=== PATIENT | female | born 1960 | race Caucasian/White ===

== ENCOUNTER 2018-01-07 16:21 | Emergency (ER) | payer BC ==
[~2018-01-07] VITALS: Ht 175.3 cm; Wt 94.8 kg
[~2018-01-07 16:21] MED LIST: AMOXICILLIN250 MG PO; ASPIR-LOW81 MG PO; CIPRO500 MG PO; CLARITIN-D 241 EACH PO; LEVAQUIN500 MG PO; METRONIDAZOLE500 MG PO; OMEPRAZOLE40 MG PO; PROMETHAZINE HC25 M1 PO
[2018-01-07] MEDS ORDERED: HYDROCODONE/APAP 10MG-325MG TAB PO ONE (16:45)
--- NOTE | 2018-01-07 19:37 | Diagnostic Imaging Report ---
KNEE LEFT THREE VIEWS, LOWER LEG LEFT, ANKLE 3+ VIEWS LEFT, FOOT LEFT COMPLETE Comparison: None Clinical history: Pain from the foot to the knee, concern for fracture Findings: Left knee, lower leg, ankle and foot: Moderate soft tissue swelling is noted about the leg and ankle. Small knee joint effusion. Tricompartmental degenerative osteoarthrosis is noted about the knee. There is slight offset of the second tarsometatarsal joint on oblique view. No acute fractures seen. Impression: 1. Small knee joint effusion with tricompartmental degenerative osteoarthrosis. 2. Offset of the second tarsometatarsal joint only seen on oblique view. Consider dedicated weight bearing views and correlate with concern for Lisfranc type injury. Signed by: Dr Darline Castellanos MD on 01/07/2018 7:33 PM
== END 2018-01-07 20:10 | disposition home or self-care (01) ==
LOC: ER 16:21
DX: S93.492A Sprain of other ligament of left ankle, initial encounter (principal); S80.02XA Contusion of left knee, initial encounter; W01.0XXA Fall on same level from slipping, tripping and stumbling without subsequent striking against object, initial encounter; Y93.01 Activity, walking, marching and hiking; Y92.488 Other paved roadways as the place of occurrence of the external cause; K21.9 Gastro-esophageal reflux disease without esophagitis; Z87.19 Personal history of other diseases of the digestive system
CPT/HCPCS: 99283

== ENCOUNTER 2019-07-17 07:23 | Emergency (ER) | payer BC, OTHER ==
[~2019-07-17] VITALS: Ht 172.7 cm; Wt 93.0 kg
--- OUTSIDE RECORDS SUMMARY | 2019-07-17 07:25 | XMS REPORT | Continuity of Care Document ---
Author Author [facility] Ch[facility] Address Unknown Phone Unavailable Care Team Providers Care Area Attendant Name Role Phone [facility] Unavailable Unavailable Problems Problem Status Onset Date Classification Date Reported Comments Source Chronic frontal sinusitis Active Problem 04/19/2019 [id number] Microcytic anemia Active Problem 04/19/2019.0.1.813086.4.391.11.541636 Encounter for general adult medical examination without abnormal findings Active Diagnosis 04/05/2019 2.0.1.065531.4.391.11.679737 Need for hepatitis C screening test Active Diagnosis 04/05/2019.0.1.555849.4.391.11.718418 Encounter for screening for other disorder Active Diagnosis 04/05/2019 2.0.1.469531.4.391.11.448017 Screening for breast cancer Active Diagnosis 04/05/2019..1.454735.4.391.11.431993 Medications Medication Details Route Status Patient Instructions Ordering Provider Order Date Source Omeprazole 1 capsule Orally Active 20 MG Orally Once a day [facility] 2.0.1.882526.4.391.11.795866 Allergies, Adverse Reactions, Alerts Substance Category Reaction Severity Reaction type Status Date Reported Comments Source Augmentin Adverse Reaction abnormal sleep Adverse Reaction Active 04/04/2019.0.1.002444.4.391.11.330352 Immunizations No Data Provided for This Section Results No Data Provided for This Section Pathology Reports No Data Provided for This Section Diagnostic Reports No Data Provided for This Section Consultation Notes No Data Provided for This Section Discharge Summaries No Data Provided for This Section History and Physicals No Data Provided for This Section Vital Signs Vital Sign Value Date Comments Source Weight 216 04/04/2019 2.16.840.1.446641.4.391.11.568939 Height 68.5 04/04/2019 2.16.840.1.969045.4.391.11.935547 Temperature Oral (F) 98.4 F 04/04/2019 2.16.840.1.928865.4.391.11.958122 Heart Rate 60 04/04/2019 2.16.840.1.188872.4.391.11.787525 Diastolic (mm Hg) 82 04/04/2019 2.16.840.1.628944.4.391.11.246535 Systolic (mm Hg) 129 04/04/2019 2.16.840.1.943439.4.391.11.219988 Encounters No Data Provided for This Section Procedures No Data Provided for This Section Assessment and Plan No Data Provided for This Section Plan of Care No Data Provided for This Section Social History No Data Provided for This Section Family History No Data Provided for This Section Advance Directives No Data Provided for This Section Functional Status No Data Provided for This Section
--- OUTSIDE RECORDS SUMMARY | 2019-07-17 07:25 | XMS REPORT ---
Author [facility] Address Unknown Phone Unavailable Care Team Providers Care Scalp Treatment Operator Name Role Phone PRASANNAENRIQUE Mague ZAZUETABONG Unavailable Unavailable Problems This patient has no known problems. Allergies, Adverse Reactions, Alerts This patient has no known allergies or adverse reactions. Medications This patient has no known medications. Results Test Description Test Time Test Comments Text Results Atomic Results Result Comments ANKLE 3+ VIEWS LEFT [place] [id number] Patient Name: JUANI VALLE MR #: [id number] : 1960 Age/Sex: 57/F Req #: [id number] Adm Physician: Ordered by: IRVING [employer] TECHNICIAN Report #: [id number] Location: ER Room/Bed: Procedure: [id number] DX/ANKLE 3+ VIEWS LEFT Exam Date: 01/07/18 Exam Time: 1705 REPORT STATUS: Signed KNEE LEFT THREE VIEWS, LOWER LEG LEFT, ANKLE 3+ VIEWS LEFT, FOOT LEFT COMPLETE Comparison: None Clinical history: Pain from the foot to the knee, concern for fracture Findings: Left knee, lower leg, ankle and foot: Moderate soft tissue swelling is noted about the leg and ankle. Small knee joint effusion. Tricompartmental degenerative osteoarthrosis is noted about the knee. There is slight offset of the second tarsometatarsal joint on oblique view. No acute fractures seen. Impression: 1. Small knee joint effusion with tricompartmental degenerative osteoarthrosis. 2. Offset of the second tarsometatarsal joint only seen on oblique view. Consider dedicated weight bearing views and correlate with concern for Lisfranc type injury. Signed by: Dr Collin Castellanos MD on 01/07/2018 7:33 PM Dictated By: COLLIN CASTELLANOS MD 32 Transcribed By: TAYLOR on 01/07/181932 COPY TO: IR[employer]ING [employer] TECHNICIAN FOOT LEFT COMPLETE [place] [address] Patient Name: JUANI VALLE MR #: [id number] : 1960 Age/Sex: 57/F Req #: [id number] Adm Physician: Ordered by: IRVING [employer] TECHNICIAN Report #: [id number] Location: ER Room/Bed: Procedure: [id number] DX/FOOT LEFT COMPLETE Exam Date: 01/07/18 Exam Time: 1705 REPORT STATUS: Signed KNEE LEFT THREE VIEWS, LOWER LEG LEFT, ANKLE 3+ VIEWS LEFT, FOOT LEFT COMPLETE Comparison: None Clinical history: Pain from the foot to the knee, concern for fracture Findings: Left knee, lower leg, ankle and foot: Moderate soft tissue swelling is noted about the leg and ankle. Small knee joint effusion. Tricompartmental degenerative osteoarthrosis is noted about the knee. There is slight offset of the second tarsometatarsal joint on oblique view. No acute fractures seen. Impression: 1. Small knee joint effusion with tricompartmental degenerative osteoarthrosis. 2. Offset of the second tarsometatarsal joint only seen on oblique view. Consider dedicated weight bearing views and correlate with concern for Lisfranc type injury. Signed by: Dr Collin Castellanos MD on 01/07/2018 7:33 PM Dictated By: COLLIN CASTELLANOS MD 32 Transcribed By: TAYLOR on 01/07/181932 COPY TO: IRVING VILLARREAL NP LOWER LEG LEFT [place] [address] Patient Name: JUANI VALLE MR #: [id number] : 1960 Age/Sex: 57/F Req #: [id number] Adm Physician: Ordered by: IRVING [employer] TECHNICIAN Report #: [id number] Location: ER Room/Bed: Procedure: [id number] DX/LOWER LEG LEFT Exam Date: 01/07/18 Exam Time: 1705 REPORT STATUS: Signed KNEE LEFT THREE VIEWS, LOWER LEG LEFT, ANKLE 3+ VIEWS LEFT, FOOT LEFT COMPLETE Comparison: None Clinical history: Pain from the foot to the knee, concern for fracture Findings: Left knee, lower leg, ankle and foot: Moderate soft tissue swelling is noted about the leg and ankle. Small knee joint effusion. Tricompartmental degenerative osteoarthrosis is noted about the knee. There is slight offset of the second tarsometatarsal joint on oblique view. No acute fractures seen. Impression: 1. Small knee joint effusion with tricompartmental degenerative osteoarthrosis. 2. Offset of the second tarsometatarsal joint only seen on oblique view. Consider dedicated weight bearing views and correlate with concern for Lisfranc type injury. Signed by: Dr Collin Castellanos MD on 01/07/2018 7:33 PM Dictated By: COLLIN CASTELLANOS MD 32 Transcribed By: TAYLOR on 01/07/181932 COPY TO: [employer] TECHNICIAN KNEE LEFT THREE VIEWS [place] [address] Patient Name: JUANI VALLE MR #: [id number] : 1960 Age/Sex: 57/F Req #: [id number] Adm Physician: Ordered by: IR[employer]ING [employer] TECHNICIAN Report #: [id number] Location: ER Room/Bed: Procedure: [id number] DX/KNEE LEFT THREE VIEWS Exam Date: 01/07/18 Exam Time: 1705 REPORT STATUS: Signed KNEE LEFT THREE VIEWS, LOWER LEG LEFT, ANKLE 3+ VIEWS LEFT, FOOT LEFT COMPLETE Comparison: None Clinical history: Pain from the foot to the knee, concern for fracture Findings: Left knee, lower leg, ankle and foot: Moderate soft tissue swelling is noted about the leg and ankle. Small knee joint effusion. Tricompartmental degenerative osteoarthrosis is noted about the knee. There is slight offset of the second tarsometatarsal joint on oblique view. No acute fractures seen. Impression: 1. Small knee joint effusion with tricompartmental degenerative osteoarthrosis. 2. Offset of the second tarsometatarsal joint only seen on oblique view. Consider dedicated weight bearing views and correlate with concern for Lisfranc type injury. Signed by: Dr Collin Castellanos MD on 01/07/2018 7:33 PM Dictated By: COLLIN CASTELLANOS MD 32 Transcribed By: TAYLOR on 01/07/181932 COPY TO: [employer] TECHNICIAN
--- OUTSIDE RECORDS SUMMARY | 2019-07-17 07:25 | XMS REPORT ---
Author Author DEEDEE MARTINEZ Organization [employer] Address Unknown Phone Unavailable Care Team Providers Care Underwater Roboticist Name Role Phone DEEDEE MARTINEZ CP Unavailable Allergies, Adverse Reactions, Alerts Substance Reaction Event Type Augmentin abnormal sleep Drug Allergy Problems Problem Type Condition Code Onset Dates Condition Status Assessment Encounter for general adult medical examination without abnormal findings Z00.00 Active Problem Chronic frontal sinusitis J32.1 Active Assessment Need for hepatitis C screening test Z11.59 Active Assessment Encounter for screening for other disorder Z13.89 Active Assessment Screening for breast cancer Z12.31 Active Medications Medication Code System Code Instructions Start Date End Date Status Dosage Omeprazole [facility] [id number] 20 MG Orally Once a day Active 1 capsule Vital Signs Date/Time: April 04, 2019 BMI 32.36 Index Weight 216 lbs Height 68.5 in Temperature 98.4 F Cardiac Monitoring Heart Rate 60 /min Blood Pressure Diastolic 82 mm Hg Blood Pressure Systolic 129 mm Hg Results No Known Results Summary Purpose [employer] Submission
--- OUTSIDE RECORDS SUMMARY | 2019-07-17 07:25 | XMS REPORT ---
Author Author DEEDEE MARTINEZ Organization [employer] Address Unknown Phone Unavailable Care Team Providers Care Asset Specialist Name Role Phone DEEDEE MARTINEZ CP Unavailable Allergies No Known Allergies Problems Problem Type Condition Code Onset Dates Condition Status Problem Chronic frontal sinusitis J32.1 Active Problem Microcytic anemia D50.9 Active Medications No Known Medications Results No Known Results Summary Purpose [employer] Submission
--- OUTSIDE RECORDS SUMMARY | 2019-07-17 07:25 | XMS REPORT ---
Author Author DEEDEE MARITNEZ Organization [employer] Address Unknown Phone Unavailable Care Team Providers Care Apple Picker Name Role Phone DEEDEE MARTINEZ CP Unavailable Allergies No Known Allergies Problems Problem Type Condition Code Onset Dates Condition Status Problem Chronic frontal sinusitis J32.1 Active Problem Microcytic anemia D50.9 Active Assessment Microcytic anemia D50.9 Active Medications No Known Medications Results No Known Results Summary Purpose [employer] Submission
--- NOTE | 2019-07-17 09:13 | Diagnostic Imaging Report ---
EXAM: ANKLE 3 + VIEWS RIGHT DATE: 07/17/2019 8:44 AM INDICATION: Pain COMPARISON: None FINDINGS: There is no evidence for acute fracture or dislocation. The ankle mortise is maintained. No focal lytic or blastic abnormalities identified. No radiopaque foreign bodies appreciated IMPRESSION: No acute radiographic abnormality identified within the right ankle. Signed by: Dr. Maicol Phelps MD on 07/17/2019 9:09 AM
[2019-07-17] MEDS ORDERED: HYDROCODONE/APAP 7.5MG-325MG 1 EA TAB PO ONE (09:30)
[2019-07-17 10:15] LABS: INR 0.91; PROTHROMBIN TIME 12.7 seconds (11.9-14.5)
[2019-07-17 10:16] LABS: BASOPHILS % 0.3 % (0.0-1.0); EOSINOPHILS # (AUTO) 0.1 (0.0-0.4); EOSINOPHILS % 0.7 % (0.0-6.0); HEMATOCRIT 41.3 % (34.2-44.1); HEMOGLOBIN 12.4 g/dL (12.0-16.0); LYMPHOCYTES # (AUTO) 1.6 (1.0-3.2); LYMPHOCYTES % 18.6 % (18.0-39.1); MEAN CORPUSCULAR HEMOGLOBIN 19.2 pg (28-32); MEAN CORPUSCULAR VOLUME 63.8 fL (81-99); MONOCYTES # (AUTO) 0.7 (0.2-0.8); MONOCYTES % 7.9 % (4.4-11.3); NEUTROPHILS # (AUTO) 6.3 (2.1-6.9); NEUTROPHILS % 71.8 % (38.7-80.0); PARTIAL THROMBOPLASTIN TIME 28.5 seconds (23.8-35.5); PLATELET COUNT 321 x10e3/uL (140-360); RED BLOOD COUNT 6.47 x10e6/uL (3.6-5.1); RED CELL DISTRIBUTION WIDTH 15.8 % (11.7-14.4)
[2019-07-17 10:26] LABS: ALANINE AMINOTRANSFERASE 19 IU/L (0-55); ALBUMIN 4.4 g/dL (3.5-5.0); ALBUMIN/GLOBULIN RATIO 1.3 (0.8-2.0); ALKALINE PHOSPHATASE 127 IU/L (40-150); ANION GAP 14.8 mmol/L (8-16); BLOOD UREA NITROGEN 10 mg/dL (7-26); BUN/CREATININE RATIO 13 (6-25); CALCIUM 10.1 mg/dL (8.4-10.2); CARBON DIOXIDE 22 mmol/L (22-29); CHLORIDE 106 mmol/L (98-107); EST GLOMERULAR FILTRATION RATE > 60 ML/MIN (60-); GLUCOSE 91 mg/dL (74-118); POTASSIUM 3.8 mmol/L (3.5-5.1); SODIUM 139 mmol/L (136-145)
[2019-07-17] MEDS ORDERED: KETOROLAC TROMETHAMINE 60 MG/2 ML VIAL IM ONE (10:30)
[2019-07-17] MEDS ORDERED: DEXAMETHASONE SOD PHOS 10 MG/1 ML VIAL IM ONE (10:30)
[2019-07-17 11:55] LABS: ERYTHROCYTE SEDIMENTATION RATE 13 mm/hr (0-20)
[2019-07-17 13:10] VITALS: BP 142/81
== END 2019-07-17 13:32 | disposition home or self-care (01) ==
LOC: ER 07:23
DX: M25.571 Pain in right ankle and joints of right foot (principal); M10.071 Idiopathic gout, right ankle and foot; R26.2 Difficulty in walking, not elsewhere classified
CPT/HCPCS: 36415; 73610; 80053; 84550; 85025; 85610; 85651; 85730; 99284; J1100; J1885

== ENCOUNTER 2022-05-16 01:21 | Emergency (ER) | payer OTHER ==
[~2022-05-16] VITALS: Ht 172.7 cm; Wt 93.0 kg
[2022-05-16 01:47] LABS: CLARITY,URINE CLOUDY (CLEAR); COLOR,URINE RED (YELLOW); LEUKOCYTE ESTERASE ,URINE TRACE (NEGATIVE); NITRITE,URINE NEGATIVE (NEGATIVE)
[2022-05-16 01:48] LABS: KETONES,URINE NEGATIVE (NEGATIVE); PROTEIN,URINE DIPSTICK >=300 (NEGATIVE); URINE UROBILINOGEN 1 mg/dL (0.2 - 1)
[2022-05-16 01:59] LABS: BACTERIA,URINE FEW /HPF; EPITHELIAL CELLS,URINE FEW /LPF; RBC,URINE >50 /HPF (0-5); RENAL EPITHELIAL CELLS,URINE FEW
[2022-05-16 02:01] VITALS: BP 170/90
[2022-05-16] MEDS ORDERED: ONDANSETRON HCL 4 MG ORAL DISINTEGRATING TAB PO ONE (02:15)
[2022-05-16] MEDS ORDERED: ONDANSETRON HCL 4 MG ORAL DISINTEGRATING TAB ONE (02:16)
== END 2022-05-16 02:12 | disposition home or self-care (01) ==
LOC: ER 01:23
DX: N30.91 Cystitis, unspecified with hematuria (principal); Z79.82 Long term (current) use of aspirin; Z87.891 Personal history of nicotine dependence
CPT/HCPCS: 81001; 99283; Q0162